=== PATIENT | female | born 1960 | race Caucasian/White ===

== ENCOUNTER → 2018-01-12 08:14 | Outpatient (CLI) | payer OTHER, SELFPAY ==
[2018-01-12 09:51] LABS: Alanine Aminotransferase 42 U/L (12-78); Albumin Level 3.8 gm/dL (3.4-5.0); Albumin/Globulin Ratio 1.3 (1.1-1.8); Alkaline Phosphatase 82 U/L (46-116); Anion Gap 11.2 mEq/L (5-15); Aspartate Amino Transferase 22 U/L (15-37); Bilirubin,Total 0.4 mg/dL (0.2-1.0); Blood Urea Nitrogen 14 mg/dL (7-18); Calcium 8.5 mg/dL (8.5-10.1); Carbon Dioxide 30 mmol/L (21.0-32.0); Chloride 106 mmol/L (98-107); Chol/HDL Ratio 3.8 (1-3.5); Cholesterol 203 mg/dL (140-200); Creatinine,Serum 0.77 mg/dL (0.55-1.02); Estimated Glomerular Filt Rate 78 ml/min (>60); GFR (African American) 94 ML/MIN (>60); Glucose 96 mg/dL (74-106); HDL Cholesterol 54 mg/dL (29-89); LDL Cholesterol 131 mg/dL (0-130); Potassium 4.2 mmoL/L (3.5-5.1); Sodium 143 mmol/L (136-145); Thyroid Stimulating Hormone 1.99 uIU/ml (0.358-3.740); Total Protein,Serum 6.8 gm/dL (6.4-8.2); Triglycerides 89 mg/dL (30-200); VLDL Cholesterol 18 mg/dL (0-40)
[2018-01-13 17:03] LABS: Hemoglobin A1C 5.7 % (0.0-7.0)
== END ==
PROVIDERS: Visit Provider Family Medicine
DX: I10 Essential (primary) hypertension (principal); Z68.41 Body mass index [BMI] 40.0-44.9, adult
CPT/HCPCS: 36415; 80053; 80061; 83036; 84443

== ENCOUNTER → 2018-11-25 11:09 | Outpatient (CLI) | payer OTHER, SELFPAY ==
--- NOTE | 2018-11-25 11:14 | XR_ITS ---
XR knee RT 4V HISTORY: ITS.REASON: RT KNEE PAIN ORDERING PHYSICIAN: Drew Campbell MD PATIENT AGE: 58 years COMPARISON: None FINDINGS: Weight bearing views are performed There are mild tricompartmental osteoarthritic changes. There is decrease in the joint space medially with osteophyte formation at the lateral compartment and patellofemoral joint. Osteophytes are also present in the intercondylar region of the distal femur and at the tibial spines. No fracture or dislocation. No lytic or blastic change. IMPRESSION: Mild tricompartmental osteoarthritis
== END ==
PROVIDERS: PCP Family Medicine; Visit Provider Family Medicine
DX: M25.561 Pain in right knee (principal)
CPT/HCPCS: 73564

== ENCOUNTER → 2019-08-10 07:21 | Outpatient (CLI) | payer OTHER, SELFPAY ==
[2019-08-10 08:53] LABS: Alanine Aminotransferase 25 U/L (12-78); Albumin Level 3.6 gm/dL (3.4-5.0); Albumin/Globulin Ratio 1.3 (1.1-1.8); Alkaline Phosphatase 80 U/L (46-116); Anion Gap 13.2 mEq/L (5-15); Aspartate Amino Transferase 12 U/L (15-37); Bilirubin,Total 0.5 mg/dL (0.2-1.0); Blood Urea Nitrogen 17 mg/dL (7-18); Calcium 8.5 mg/dL (8.5-10.1); Carbon Dioxide 26 mmol/L (21.0-32.0); Chloride 105 mmol/L (98-107); Chol/HDL Ratio 3.4 (1-3.5); Cholesterol 188 mg/dL (140-200); Creatinine,Serum 0.77 mg/dL (0.55-1.02); Estimated Glomerular Filt Rate 77 ml/min (>60); GFR (African American) 93 ML/MIN (>60); Globulin 2.8 gm/dl (1.3-3.2); Glucose 98 mg/dL (74-106); HDL Cholesterol 56 mg/dL (29-89); LDL Cholesterol 115 mg/dL (0-130); Potassium 4.2 mmoL/L (3.5-5.1); Sodium 140 mmol/L (136-145); Total Protein,Serum 6.4 gm/dL (6.4-8.2); Triglycerides 84 mg/dL (30-200); VLDL Cholesterol 17 mg/dL (0-40)
== END ==
PROVIDERS: PCP Family Medicine; Visit Provider Family Medicine
DX: I10 Essential (primary) hypertension (principal); E78.5 Hyperlipidemia, unspecified
CPT/HCPCS: 36415; 80053; 80061

== ENCOUNTER → 2019-08-31 15:08 | Outpatient (CLI) | payer OTHER, SELFPAY ==
--- NOTE | 2019-08-31 15:15 | XR_ITS ---
PROCEDURE: XR FOOT WT BEARING LT 3V CLINICAL INDICATION: foot pain COMPARISON: No exams were available for comparison FINDINGS: No fracture or dislocation. No lytic or blastic change. There is normal mineralization. Minimal osteoarthritic changes are present at the 1st metatarsal phalangeal junction, at the navicular cuneiform junction and at the tarsal metatarsal junction. There is a small calcaneal spur and small enthesophyte at the Achilles insertion. IMPRESSION: Degenerative change, no acute finding Dictated by: Nithin Ramires MD 08/31/2019 16:30 Electronically signed by Nithin Ramires MD in [place] 08/31/2019 16:30
--- NOTE | 2019-08-31 15:15 | XR_ITS ---
PROCEDURE: XR ANKLE WT BEARING RT MIN 3V CLINICAL INDICATION: foot pain Right ankle pain COMPARISON: XR FOOT WT BEARING RT 3V from 08/31/2019 FINDINGS: No fracture, dislocation, lytic change, or blastic change evident. No significant degenerative change IMPRESSION: No acute findings. Dictated by: Nithin Ramires MD 08/31/2019 16:31 Electronically signed by Nitihn Ramires MD in [place] 08/31/2019 16:31
--- NOTE | 2019-08-31 15:15 | XR_ITS ---
PROCEDURE: XR ANKLE WT BEARING LT MIN 3V CLINICAL INDICATION: foot pain Left dorsal foot and ankle pain COMPARISON: XR FOOT WT BEARING LT 3V from 08/31/2019 FINDINGS: No fracture, dislocation, lytic change, or blastic change evident. No significant degenerative change. There are minimal hypertrophic changes at the tip of the medial malleolar region. Talar dome is intact as is the ankle mortise IMPRESSION: Negative left ankle Dictated by: Nithin Ramires MD 08/31/2019 16:29 Electronically signed by Nithin Ramires MD in [place] 08/31/2019 16:29
--- NOTE | 2019-08-31 15:15 | XR_ITS ---
PROCEDURE: XR FOOT WT BEARING RT 3V CLINICAL INDICATION: foot pain COMPARISON: No exams were available for comparison FINDINGS: No fracture or dislocation. No lytic or blastic change. There is normal mineralization. Minimal osteoarthritic changes are present at the 1st MTP joint, navicular cuneiform joint and metatarsal tarsal junction. Other findings:None. IMPRESSION: Mild degenerative changes otherwise negative Dictated by: Nithin Ramires MD 08/31/2019 16:32 Electronically signed by Nithin Ramires MD in [place] 08/31/2019 16:32
== END ==
PROVIDERS: PCP Family Medicine; Visit Provider Podiatrist
DX: M79.672 Pain in left foot (principal); M79.671 Pain in right foot; M25.872 Other specified joint disorders, left ankle and foot
CPT/HCPCS: 73610; 73630

== ENCOUNTER → 2021-11-05 13:42 | Outpatient (CLI) | payer OTHER, SELFPAY | PROVIDERS: PCP Family Medicine; Visit Provider Nurse Practitioner | DX: U07.1 COVID-19 (principal) | CPT/HCPCS: C9803; U0003; U0005 ==

== ENCOUNTER → 2022-11-11 09:24 | Outpatient (CLI) | payer OTHER, SELFPAY ==
[2022-11-11 10:45] LABS: Basophils # 0.1 K/mm3 (0-0.2); Basophils % 1.2 % (0.1-2.0); Eosinophils # 0.3 K/mm3 (0.0-0.4); Eosinophils % 4.4 % (0.1-12.0); Hematocrit 45.4 % (37.0-47.0); Hemoglobin 14.2 g/dL (12.2-16.2); Lymphocytes # 2.3 K/mm3 (0.7-4.5); Lymphocytes % 30.9 % (10-50); Mean Corpuscular HGB Conc 31.4 g/dL (31.8-35.4); Mean Corpuscular Hemoglobin 28.8 pg (27.0-31.2); Mean Corpuscular Volume 91.9 fl (81-99); Monocytes # 0.4 K/mm3 (0.1-1.0); Monocytes % 5.9 % (1.7-9.3); Neutrophils # 4.2 K/mm3 (1.8-7.8); Neutrophils % 57.6 % (37.0-80.0); Platelet Count 325 K/mm3 (142-424); Red Blood Count 4.94 M/mm3 (4.20-5.40); Red Cell Distribution Width 13.7 % (11.5-17.5); White Blood Count 7.3 K/mm3 (4.8-10.8)
[2022-11-11 10:57] LABS: Chloride 106 mmol/L (98-107); Potassium 4.1 mmoL/L (3.5-5.1); Sodium 140 mmol/L (136-145)
[2022-11-11 10:59] LABS: Alanine Aminotransferase 27 U/L (12-78); Aspartate Amino Transferase 28 U/L (14-36); Blood Urea Nitrogen 23 mg/dl (7-17); Estimated Glomerular Filt Rate 85 ml/min (>60); GFR (African American) 103 ML/MIN (>60)
[2022-11-11 11:00] LABS: Albumin Level 3.8 g/dl (3.5-5.0); Albumin/Globulin Ratio 1.7 (1.1-1.8); Alkaline Phosphatase 75 U/L (38-126); Anion Gap 10.1 mEq/L (5-15); Bilirubin,Total 0.5 mg/dl (0.2-1.3); Calcium 8.5 mg/dl (8.4-10.2); Carbon Dioxide 28 mmol/L (22.0-30.0); Cholesterol 196 mg/dl (140-200); Globulin 2.2 g/dL (1.3-3.2); Glucose 89 mg/dl (74-100); Triglycerides 93 mg/dl (30-150); VLDL Cholesterol 19 mg/dL (0-40)
[2022-11-11 11:01] LABS: HDL Cholesterol 49 mg/dl (40-60)
[2022-11-11 11:11] LABS: Direct LDL Cholesterol 90.24 mg/dL (100-129)
[2022-11-11 11:31] LABS: Thyroid Stimulating Hormone 1.13 uIU/mL (0.465-4.68)
== END ==
PROVIDERS: PCP Family Medicine; Visit Provider Family Medicine
DX: I10 Essential (primary) hypertension (principal); R53.83 Other fatigue; Z13.220 Encounter for screening for lipoid disorders; Z79.899 Other long term (current) drug therapy
CPT/HCPCS: 36415; 80053; 80061; 84443; 85025

== ENCOUNTER 2023-08-31 09:00 | Outpatient (RCR) | payer OTHER, SELFPAY | END 2023-08-31 09:05 | disposition home or self-care (01) | LOC: PT 09:00 | PROVIDERS: PCP Family Medicine; Visit Provider Physician Assistant Surgical | DX: M25.561 Pain in right knee (principal); Z96.651 Presence of right artificial knee joint | CPT/HCPCS: 97010; 97014; 97016; 97110; 97140; 97163; 97164; 97530; G0283 ==

== ENCOUNTER 2024-04-18 07:41 | Outpatient (CLI) | payer OTHER, SELFPAY ==
[2024-04-18 07:54] LABS: Basophils # 0.1 K/mm3 (0-0.2); Eosinophils # 0.3 K/mm3 (0.0-0.4); Hematocrit 43.3 % (37.0-47.0); Lymphocytes # 2.3 K/mm3 (0.7-4.5); Mean Corpuscular HGB Conc 32.2 g/dL (31.8-35.4); Mean Corpuscular Hemoglobin 29.5 pg (27.0-31.2); Mean Corpuscular Volume 91.8 fl (81-99); Mean Platelet Volume 7.6 fl (7.4-10.4); Monocytes # 0.4 K/mm3 (0.1-1.0); Monocytes % 5.5 % (1.7-9.3); Neutrophils # 4.2 K/mm3 (1.8-7.8); Neutrophils % 57.5 % (37.0-80.0); Platelet Count 284 K/mm3 (142-424); Red Blood Count 4.72 M/mm3 (4.20-5.40); Red Cell Distribution Width 13.7 % (11.5-17.5); White Blood Count 7.2 K/mm3 (4.8-10.8)
[2024-04-18 08:51] LABS: Chloride 106 mmol/L (98-107)
[2024-04-18 08:52] LABS: Sodium 137 mmol/L (136-145)
[2024-04-18 08:54] LABS: Alanine Aminotransferase 23 U/L (12-78); Albumin Level 3.7 g/dl (3.5-5.0); Albumin/Globulin Ratio 1.5 (1.1-1.8); Alkaline Phosphatase 69 U/L (38-126); Aspartate Amino Transferase 26 U/L (14-36); Bilirubin,Total 0.6 mg/dl (0.2-1.3); Blood Urea Nitrogen 16 mg/dl (7-17); Carbon Dioxide 27 mmol/L (22.0-30.0); Estimated Glomerular Filt Rate 85 ml/min (>60); GFR (African American) 103 ML/MIN (>60); Globulin 2.4 g/dL (1.3-3.2); Total Protein,Serum 6.1 g/dl (6.3-8.2)
[2024-04-18 08:55] LABS: Calcium 9.2 mg/dl (8.4-10.2); Chol/HDL Ratio 3.8 (1-3.5); Cholesterol 203 mg/dl (140-200); Glucose 92 mg/dl (74-100); HDL Cholesterol 53 mg/dl (40-60); Triglycerides 79 mg/dl (30-150); VLDL Cholesterol 16 mg/dL (0-40)
[2024-04-18 09:06] LABS: Direct LDL Cholesterol 106.92 mg/dL (100-129)
[2024-04-18 10:16] LABS: Vitamin B12 705 pg/mL (239-931)
== END 2024-04-18 23:59 | disposition home or self-care (01) ==
LOC: LAB 07:42
PROVIDERS: PCP Internal Medicine; Visit Provider Internal Medicine
DX: R53.83 Other fatigue (principal); I10 Essential (primary) hypertension; E78.5 Hyperlipidemia, unspecified; E66.01 Morbid (severe) obesity due to excess calories; Z68.41 Body mass index [BMI] 40.0-44.9, adult
CPT/HCPCS: 36415; 80050; 80053; 80061; 82607; 84443; 85025

== ENCOUNTER 2024-09-27 07:42 | Emergency (ER) | payer OTHER, SELFPAY ==
[2024-09-27] VITALS (11 sets, daily range): BP systolic 126–147; BP diastolic 72–91; PULSE 50–80; RESP 13–16; TEMP 36.4–36.7; O2SAT 93–100; BMI 31.3
--- NOTE | 2024-09-27 07:56 | ECG_ITS ---
APPROVED REPORT Exam: Resting ECG HR:62 bpm ECG Measurements Heart Rate 62 AXES MS 165 P -13 QRSd 98 QRS 36 QT 370 T -65 QTc 376 Conclusion POSSIBLE ANTERIOR MYOCARDIAL INFARCTION , PROBABLY OLD [30 ms Q WAVE IN V3/V4, OR R < 0.2 mV IN V4] MODERATE T-WAVE ABNORMALITY, CONSIDER INFERIOR ISCHEMIA [-0.1+ mV T-WAVE IN II/aVF] ABNORMAL ECG Sinus rhythm versus atrial flutter with 4-1 block, no STEMI Electronically signed by : JUANITO GILL, 09/30/2024 17:31:00
--- NOTE | 2024-09-27 08:08 | CT_ITS ---
FINAL REPORT TECHNIQUE: Thin section axial images are obtained through the brain after intravenous contrast injection. Multiplanar reconstructions were obtained from the axial data. Exam was performed using dose reduction technique per the ALARA principal. CLINICAL HISTORY: fall, posterior trauma, new nystagmus and vertigo COMPARISON: None FINDINGS: Exam is somewhat limited secondary to poor bolus. The intracerebral portions of the carotid arteries are patent. The anterior and middle cerebral arteries are patent. The basilar artery is patent. The left vertebral artery is dominant. The posterior cerebral arteries arise from the basilar artery. [place] is intact. There is no significant stenosis, aneurysm, or AVM. IMPRESSION: Unremarkable but somewhat limited exam. Reviewed, Interpreted and Dictated by Nandini Gaffney MD Transcribed by Kenzie Mosquera Authenticated and [facility]
--- NOTE | 2024-09-27 08:08 | CT_ITS ---
FINAL REPORT TECHNIQUE: Thin section axial images were obtained from skull base to vertex without contrast. Coronal and sagittal reconstruction images were obtained from the axial data. Exam was performed using dose reduction technique. CLINICAL HISTORY: fall, posterior trauma, new nystagmus and vertigo COMPARISON: None FINDINGS: There is no mass effect or midline shift. There is no hydrocephalus. There is no intracranial hemorrhage. The posterior fossa is without acute abnormality. The basilar cisterns are preserved. The soft tissues are without acute abnormality. No acute osseous abnormality is identified. IMPRESSION: No acute intracranial abnormality. Reviewed, Interpreted and Dictated by Nandini Gaffney MD Transcribed by Kenzie Mosquera Authenticated and [facility]
--- NOTE | 2024-09-27 08:08 | CT_ITS ---
FINAL REPORT TECHNIQUE: Thin section axial images were obtained through the neck after contrast administration per CT angiogram protocol. Multiplanar reconstruction images were obtained from the axial data. Exam was performed using dose reduction technique. CLINICAL HISTORY: fall, posterior trauma, new nystagmus and vertigo COMPARISON: None FINDINGS: CTA NECK: Exam is somewhat limited secondary to poor bolus. Aortic arch: There is a normal three-vessel configuration to the aortic arch. There is no significant stenosis of the great vessels at their origins. Right carotid artery: The right common carotid artery is patent without stenosis. The cervical portions of the right internal carotid artery are patent without stenosis. Left carotid artery: The left common carotid artery is patent without stenosis. The cervical portions of the left internal carotid artery are patent without stenosis. Vertebral arteries: The vertebral arteries are patent. Other soft tissues: Unremarkable. IMPRESSION: Unremarkable but somewhat limited exam. Reviewed, Interpreted and Dictated by Nandini Gaffney MD Transcribed by Kenzie Mosquera Authenticated and [facility]
--- NOTE | 2024-09-27 08:09 | XR_ITS ---
FINAL REPORT CLINICAL HISTORY: new nystagmus and vertigo FINDINGS: A single view of the chest was obtained. There is no prior exam for comparison. The cardiac and mediastinal silhouettes are within normal limits. The lungs are clear. There is no effusion or pneumothorax. IMPRESSION: No radiographic evidence of acute cardiac or pulmonary disease on this single view of the chest. Reviewed, Interpreted and Dictated by Nandini Gaffney MD Transcribed by Starr Mccoy Authenticated and [facility]
--- NOTE | 2024-09-27 08:09 | CT_ITS ---
FINAL REPORT TECHNIQUE: Thin section axial images were obtained through the cervical spine without contrast. Multiplanar reconstruction images were obtained from the axial data. Exam was performed using dose reduction techniques. CLINICAL HISTORY: fall, posterior trauma, new nystagmus and vertigo COMPARISON: None FINDINGS: There is no acute fracture or acute malalignment of the cervical spine. There is no evidence of unilateral or bilateral facet lock. Vertebral body height is preserved. Multilevel degenerative disc disease is most pronounced in the mid cervical spine. No acute paraspinal abnormality is identified. IMPRESSION: No fracture. Degenerative disc disease Reviewed, Interpreted and Dictated by Nandini Gaffney MD Transcribed by Kenzie Mosquera Authenticated and [facility]
[2024-09-27] MEDS: ONDANSETRON 4MG/2ML VIAL 4 MG IV (08:18)
[2024-09-27] MEDS: MECLIZINE 25MG TABLET 50 MG PO (08:18)
[2024-09-27] MEDS: DEXAMETHASONE 4MG/ML 1ML VIAL 10 MG IV (08:18)
[2024-09-27 08:19] LABS: Basophils # 0.1 K/mm3 (0-0.2); Basophils % 0.6 % (0.1-2.0); Eosinophils # 0.1 K/mm3 (0.0-0.4); Eosinophils % 1.3 % (0.1-12.0); Hematocrit 41.7 % (37.0-47.0); Hemoglobin 13.9 g/dL (12.2-16.2); Lymphocytes % 21.5 % (10-50); Mean Corpuscular HGB Conc 33.4 g/dL (31.8-35.4); Mean Corpuscular Hemoglobin 30.1 pg (27.0-31.2); Mean Corpuscular Volume 90.2 fl (81-99); Mean Platelet Volume 7.4 fl (7.4-10.4); Monocytes # 0.5 K/mm3 (0.1-1.0); Monocytes % 5.8 % (1.7-9.3); Neutrophils # 6.5 K/mm3 (1.8-7.8); Neutrophils % 70.7 % (37.0-80.0); Platelet Count 286 K/mm3 (142-424); Red Blood Count 4.62 M/mm3 (4.20-5.40); Red Cell Distribution Width 13.5 % (11.5-17.5); White Blood Count 9.2 K/mm3 (4.8-10.8)
[2024-09-27 08:25] LABS: INR 0.99 (0.9-1.1); Prothrombin Time 11.1 seconds (10.1-12.5)
[2024-09-27 08:31] LABS: Alanine Aminotransferase 30 U/L (12-78); Albumin/Globulin Ratio 1.7 (1.1-1.8); Alkaline Phosphatase 68 U/L (38-126); Anion Gap 11.3 mEq/L (5-15); Aspartate Amino Transferase 33 U/L (14-36); Bilirubin,Total 0.6 mg/dl (0.2-1.3); Blood Urea Nitrogen 14 mg/dl (7-17); Calcium 8.8 mg/dl (8.4-10.2); Carbon Dioxide 24 mmol/L (22.0-30.0); Chloride 108 mmol/L (98-107); Creatinine Clearance Estimated 82 mL/min (50-200); Estimated Glomerular Filt Rate 85 ml/min (>60); GFR (African American) 102 ML/MIN (>60); Globulin 2.3 g/dL (1.3-3.2); Glucose 166 mg/dl (74-100); Potassium 3.3 mmoL/L (3.5-5.1); Sodium 140 mmol/L (136-145); Total Protein,Serum 6.3 g/dl (6.3-8.2)
[2024-09-27 08:37] LABS: Activated Partial Thrombo Time 23.8 seconds (22.8-30.6)
[2024-09-27 08:41] LABS: NT Pro Brain Natriuretic Pep. 43.4 pg/mL (0-125)
[2024-09-27 08:48] LABS: T4 (Thyroxine) 11.4 ug/dl (5.53-11.0); Troponin I < 0.01 ng/ml (0.00-0.034)
[2024-09-27] MEDS: 0.9 % SODIUM CHLORIDE 50 ML VIAL 40 ML IV (08:51)
[2024-09-27] MEDS: SODIUM CHLORIDE 0.9% 10ML SYR (RAD ONLY) 10 ML IV (08:52)
[2024-09-27] MEDS: IOPAMIDOL-370 (76%);100ML BOTTLE 80 ML IV (08:52)
--- NOTE | 2024-09-27 08:58 | PC.NURSE ---
pt back to room via wheelchair
[2024-09-27 09:01] LABS: Thyroid Stimulating Hormone 0.83 uIU/mL (0.465-4.68)
--- NOTE | 2024-09-27 09:20 | ED_ITS ---
Discharge Plan Disposition Chief Complaint: Nausea/Vomiting/Diarrhea Prescriptions Prescriptions: New meclizine [Medi-Meclizine] 25 mg tablet 25 mg PO QID PRN (Reason: dizziness) Qty: 30 0RF ondansetron 4 mg tablet,disintegrating 4 mg PO Q6H PRN (Reason: nausea and vomiting) Qty: 10 1RF prednisone 20 mg tablet 40 mg PO DAILY 5 Days Qty: 10 0RF No Action pantoprazole 40 mg tablet,delayed release (DR/EC) 40 mg PO DAILY Qty: 30 2RF diclofenac sodium [Voltaren Arthritis Pain] 1 % gel 2 g topical QID Qty: 100 2RF Rx Instructions: apply to knee, foot, and ankle benazepril-hydrochlorothiazide 20-12.5 mg tablet 1 tab PO DAILY Qty: 90 1RF Referrals Follow up/Referrals: John Quintero, PT [Physical Therapist] - See instructions Carloz Stauffer MD [Physician] - See instructions Joel Gerard MD [Primary Care Provider] - See instructions Activity Restrictions/Add. Instructions Additional Instructions/Restrictions: Follow-up with physical therapy for further exercises for vestibular rehab. If steroid does not help, no need to continue taking it if you are not noticing a difference after about 24 hours. Meclizine for as needed/symptomatic worsening and dizziness can be taken every 6 hours as needed. Zofran for nausea. Call your family doctor to establish care for this visit to the emergency department and schedule follow-up within 48 hours to ensure improvement. If you have any worsening of your condition or any other concerning signs or symptoms, return to the emergency department or your primary care doctor for further evaluation. Clinical Impressions Clinical Impression: Peripheral positional vertigo of right ear Instructions Patient Instructions: DI for Diarrhea and Traveler's Diarrhea -- Adult, DI for Diarrhea and Traveler's Diarrhea -- Child, DI for Nausea -- Adult, DI for Nausea -- Child Print Language Print Language: Vietnamese Discharge ED Provider: Felipe Campbell General Adult HPI General Chief complaint: Nausea/Vomiting/Diarrhea Stated complaint: vomiting, dizziness, confused, high BP Time Seen by Provider: 09/27/24 07:53 Mode of Arrival: Wheelchair Source of Information: Patient Limitations: No Limitations Description of Symptoms (Recalled from ER Triage Doc. by RN): pt presents to ED with c/o nausea vomitting that began this am appros 0530. History of Present Illness HPI narrative: Please note that above description of symptoms, in this electronic medical record under categorization of recalled from ER triage doctor by RN are reflective of an initial nursing assessment, however, is not reflective of my full history and physical exam that was personally taken and clarified. Consequentially, this preceding description of symptoms, which may include the patient's categorized chief complaint in the EMR, do not reflect my personal clinical impression, and the ultimate description of history of present illness and patient stated complaints should be deferred to this section of the note. Unless stated otherwise or congruent with this section of the note, additional signs, symptoms, or incongruence should be interpreted as inaccurate with my clinical impression. Related Data Previous Rx's ?Medication ?Instructions ?Recorded diclofenac sodium 1 % topical gel 2 g topical QID #100 grams 04/27/24 (Voltaren Arthritis Pain) pantoprazole 40 mg tablet,delayed 40 mg PO DAILY #30 tabs 04/27/24 release benazepril 20 1 tab PO DAILY #90 tabs 05/11/24 mg-hydrochlorothiazide 12.5 mg tablet meclizine 25 mg tablet 25 mg PO QID PRN dizziness #30 tabs 09/27/24 (Medi-Meclizine) ondansetron 4 mg disintegrating 4 mg PO Q6H PRN nausea and 09/27/24 tablet vomiting #10 tabs prednisone 20 mg tablet 40 mg (2 x 20 mg) PO DAILY 5 days 09/27/24 #10 tabs Allergies Allergy/AdvReac Type Severity Reaction Status Date / Time No Known Allergies Allergy Verified 04/01/20 15:30 [facility] Disclaimer: The information contained in this section may have been updated after the patient was seen, as this information can be updated by other users. Social History Smoking Status: Never smoker alcohol intake: current alcohol intake frequency: holidays/special occasions only substance use type: denies use current occupational status: employed household members: none housing: house Other Medical History Have you received the Pneumonia Vaccine: No ROS Obtained: Yes All systems reviewed & no additional complaints except as documented Physical Exam General General appearance: alert and obese Head Head exam: atraumatic and normocephalic Eye Eye exam: Present PERRL, EOMI and nystagmus (Unidirectional with fast phase to the right) Neck Neck exam: Present normal inspection, full ROM and trachea midline Respiratory Respiratory exam: Present normal lung sounds bilaterally; Absent respiratory distress, wheezes, stridor, accessory muscle use or prolonged expiratory phase Cardiovascular Cardiovascular exam: Present regular rate, normal rhythm, normal heart sounds and other (Pulses equal symmetric in upper and lower extremities) Abdominal Exam Abdominal exam: Present soft; Absent distention, tenderness or pulsatile mass Extremities Exam Extremities exam: Present normal inspection; Absent edema Neurological Exam Neurological exam: Present alert, oriented X3 and CN II-XII intact; Absent motor sensory deficit Skin Skin exam: Present warm and dry; Absent diaphoresis or erythema Medical Decision Making Medical Records Medical records reviewed: Yes I reviewed the patient's medical records. Screening: Per USPSTF and CDC recommendations, given the prevalence of disease in our region, it is our hospital?s policy to screen for HIV and viral Hepatitis for all patients aged 18 and over and those with ongoing risk factors. Sahil Inquiry Pt receiving controlled substance: No Sahil was queried for this patient: No Vital Signs: 09/27/24 07:43 09/27/24 07:51 09/27/24 08:25 Temperature 97.6 F Temperature Source Oral Pulse Rate 60 53 L Pulse Rate [Left Radial] 63 Respiratory Rate 13 Blood Pressure 147/74 H 146/79 H Blood Pressure [Right Arm] 147/74 H Blood Pressure Mean [Right Arm] 98 02 Sat by Pulse Oximetry 96 95 94 L Oxygen Delivery Method Room Air 09/27/24 08:26 09/27/24 08:30 09/27/24 09:01 Temperature Temperature Source Pulse Rate 55 L 56 L 61 Pulse Rate [Left Radial] Respiratory Rate 15 Blood Pressure 139/77 129/72 144/91 H Blood Pressure [Right Arm] Blood Pressure Mean [Right Arm] 02 Sat by Pulse Oximetry 93 L 94 L 98 Oxygen Delivery Method Room Air 09/27/24 09:15 09/27/24 09:30 Temperature Temperature Source Pulse Rate 56 L 50 L Pulse Rate [Left Radial] Respiratory Rate 14 13 Blood Pressure 128/84 126/78 Blood Pressure [Right Arm] Blood Pressure Mean [Right Arm] 02 Sat by Pulse Oximetry 98 98 Oxygen Delivery Method Room Air Room Air Lab Data Lab Results 09/27/24 07:53: WBC 9.2, RBC 4.62, Hgb 13.9, Hct 41.7, MCV 90.2, MCH 30.1, MCHC 33.4, RDW 13.5, Plt Count 286, MPV 7.4, Neut % (Auto) 70.7, Lymph % (Auto) 21.5, [place] % (Auto) 5.8, Eos % (Auto) 1.3, Baso % (Auto) 0.6, Neut # (Auto) 6.5, Lymph # (Auto) 2.0, [place] # (Auto) 0.5, Eos # (Auto) 0.1, Baso # (Auto) 0.1, PT 11.1, INR 0.99, APTT 23.8, Sodium 140, Potassium 3.3 L, Chloride 108 H, Carbon Dioxide 24, Anion Gap 11.3, BUN 14, Creatinine 0.70, Estimated Creat Clear 82, Estimated GFR 85, Est GFR ( Amer) 102, Glucose 166 H, Calcium 8.8, Total Bilirubin 0.6, AST 33, ALT 30, Alkaline Phosphatase 68, Troponin I < 0.01, NT-Pro-B Natriuret Pep 43.4, Total Protein 6.3, Albumin 4.0, Globulin 2.3, Albumin/Globulin Ratio 1.7, TSH 0.83, Thyroxine (T4) 11.4 H 09/27/24 07:53 09/27/24 07:53 Orders (Tests/Meds): ED MEDICATIONS Discontinued Medications Generic Name Dose Route Start Last Admin Trade Name Jorgeq PRN Reason Stop Dose Admin Dexamethasone Sodium Phosphate 10 mg 09/27/24 08:08 09/27/24 08:18 Dexamethasone 4mg/Ml 1ml Vial IV 09/27/24 08:09 10 mg ONCE ONE Administration Diazepam 2.5 mg 09/27/24 10:03 09/27/24 10:23 Diazepam 10mg/2ml Syringe IV 09/27/24 10:04 2.5 mg ONCE ONE Administration Diazepam 2.5 mg 09/27/24 12:14 09/27/24 12:17 Diazepam 10mg/2ml Syringe IV 09/27/24 12:15 2.5 mg ONCE ONE Administration Iopamidol 80 ml 09/27/24 08:50 09/27/24 08:52 Iopamidol-370 (76%);100ml Bottle IV 09/27/24 08:51 80 ml ONCE ONE Administration Meclizine HCl 50 mg 09/27/24 08:08 09/27/24 08:18 Meclizine 25mg Tablet PO 09/27/24 08:09 50 mg ONCE ONE Administration Ondansetron HCl 4 mg 09/27/24 08:08 09/27/24 08:18 Ondansetron 4mg/2ml Vial IV 09/27/24 08:09 4 mg ONCE ONE Administration Sodium Chloride 40 ml 09/27/24 08:50 09/27/24 08:51 0.9 % Sodium Chloride 50 Ml Vial IV 09/27/24 08:51 40 ml ONCE ONE Administration Sodium Chloride 10 ml 09/27/24 08:50 09/27/24 08:52 Sodium Chloride 0.9% 10ml Syr (Rad Only) IV 09/27/24 08:51 10 ml ONCE ONE Administration ORDERS Category Date Time Status CT angio head Stat Cat Scan 09/27/24 08:[address] angio neck Stat Cat Scan 09/27/24 08:[address] cervical spine wo con Stat Cat Scan 09/27/24 08:[address] head/brain wo con Stat Cat Scan 09/27/24 08:08 Completed XR chest portable Stat Exams 09/27/24 08:09 Completed Complete Blood Count Auto Diff Stat Lab 09/27/24 07:53 Completed Comprehensive Metabolic Panel Stat Lab 09/27/24 07:53 Completed HIV (1&2) Antibody Rapid Stat Lab 09/27/24 07:53 Received Hep C Ab with Reflex to RNA Stat Lab 09/27/24 07:53 Received NT Pro Brain Natriuretic Pep. Stat Lab 09/27/24 07:53 Completed PT INR [Prothrombin Time INR] Stat Lab 09/27/24 07:53 Completed PTT [Activated Partial Thrombo Time] Stat Lab 09/27/24 07:53 Completed T4 (Thyroxine) Stat Lab 09/27/24 07:53 Completed TSH [Thyroid Stimulating Hormone] Stat Lab 09/27/24 07:53 Completed Troponin I Stat Lab 09/27/24 07:53 Completed Medical Decision Narrative: 64-year-old female history of hypertension, hyperlipidemia, obesity presenting with dizziness. Patient states that she rolled over in bed just prior to arrival, felt dizzy at that time. It has not gone away. Having difficulty walking, nausea and vomiting. Better when she is laying still, worse when she is up moving around. Family states that she was having a more or less staggering gait, but did not fall to 1 side or the other. No unilateral weakness or any other neurologic deficits. No chest pain, shortness of breath, fevers, chills, blurry vision, double vision, speaking difficulties, or any other symptoms. Patient does state that 2 days prior to this, she was outside, fell off of a stool while sitting, fell back, hit her occiput on concrete and did not lose consciousness. Has not had any symptoms since that time. This is patient's first episode of dizziness. History was obtained via conversation with patient and daughter. On arrival, patient hemodynamically stable, alert, oriented x4, appropriate, GCS 15, moving all extremities spontaneously, pupils equal and reactive to light. Full physical exam performed and significant for well-appearing female who is in no acute distress, but laying still in bed only being on eyes. Neurologically intact including cranial nerve, cerebellar, motor and sensory exam with the exception of unidirectional fast beating nystagmus to the right. Cardiopulmonary exam within normal limits. Differential includes BPPV, dissection, CVA, among others. Patient placed on continuous cardiac monitoring and continuous pulse ox with initial blood pressure 147/74, heart rate 63, saturation 96 on room air. Independent interpretation of EKG shows sinus rhythm 62 beats a minute with no acute ischemic change. [place] 165, QRS 98, QTc 376. Normal axis. Patient was given Decadron, meclizine, Zofran for symptomatic management and correction of underlying abnormalities. Workup independently interpreted and significant for non-actionable CBC or chemistry, negative troponin and BNP. Thyroid studies normal. Emmanuelle maneuver attempted x 2, unable to fix patient's symptoms. Valium trialed, this was unsuccessful. On independent interpretation of imaging, no acute intracranial bleed, no vascular unreality of the head or neck. No cervical spine abnormality. See radiology read for full review of final results. Because patient having persistent symptoms despite meds with negative CT, MRI was ordered. On independent interpretation, this was also negative. On reevaluation, patient still dizzy worse with motion. Given patient presentation, workup, history, this most likely represents benign positional vertigo. Prolonged discussion had with patient and daughter regarding treatment, recommended outpatient otolaryngology as well as physical therapy for vestibular rehab. Both voiced their understanding. Trial of steroids sent out of abundance of caution after request of daughter. I do not feel this is an appropriate given severity of symptoms. Because patient at baseline without signs or symptoms of clinical decompensation, deemed appropriate for discharge. Results were relayed to patient who voiced understanding and were agreeable to outpatient management and follow up. I discussed my clinical impression with patient and answered all questions. At this time, the evidence for any other entities in the differential is insufficient to warrant any further testing or ED observation. This was explained as well. Advisory was given that persistent or worsening symptoms require further evaluation. I confirmed the understanding of this discussion. 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 Electronic stringed instrument assembler of the spoken language may permit errors. Although I have reviewed the note, some errors may still exist. Critical Care Critical Care Time Critical Care Time: No
[2024-09-27] MEDS: diazePAM 10MG/2ML SYRINGE 2.5 MG IV ×2 (10:23→12:17)
--- NOTE | 2024-09-27 12:06 | MR_ITS ---
FINAL REPORT TECHNIQUE: Multiplanar and multisequence imaging of the brain was obtained without contrast. CLINICAL HISTORY: nystagmus, negative CT dizziness FINDINGS: The gyri and sulci are within normal limits for age. There is no mass effect or midline shift. The ventricles are symmetric in size and configuration without hydrocephalus. There are no areas of abnormal signal intensity. The cerebellum and brainstem have a normal appearance. There is a partially empty sella. There are no areas of restricted diffusion on diffusion weighted images to suggest acute infarct. Soft tissues are without acute abnormality. IMPRESSION: No acute intracranial abnormality. Partially empty sella. Reviewed, Interpreted and Dictated by Nandini Gaffney MD Transcribed by Rosalia Douglas Authenticated and [facility]
--- NOTE | 2024-09-27 12:55 | PC.NURSE ---
pt back to room via wheelchair
[2024-09-27 16:14] LABS: HIV (1&2) Antibody Rapid NONREACTIVE (NONREACTIVE)
[2024-09-28 05:10] LABS: HCV Ab Non Reactive (Non Reactive)
[2024-09-28 12:19] LABS: Lyme Ab CIA Negative (Negative)
[2024-10-02 22:48] LABS: Lyme B. burgdorferi PCR Blood Negative (Negative)
== END 2024-09-27 13:57 | disposition home or self-care (01) ==
PROVIDERS: Emergency Provider Emergency Medicine; PCP Internal Medicine
DX: H81.391 Other peripheral vertigo, right ear (principal); R41.82 Altered mental status, unspecified; R11.2 Nausea with vomiting, unspecified; R26.81 Unsteadiness on feet; I10 Essential (primary) hypertension
CPT/HCPCS: 70450; 70496; 70498; 70551; 71045; 72125; 80050; 80053; 83880; 84436; 84443; 84484; 85025; 85610; 85730; 86618; 86803; 87389; 87476; 93005; 96374; 96375; 99285; J1100; J2405; J3360; Q9967

== ENCOUNTER 2024-11-02 08:25 | Outpatient (POV) | payer OTHER, SELFPAY | END 2024-11-02 23:59 | disposition home or self-care (01) | LOC: SC 08:25 | PROVIDERS: Visit Provider Specialist/Technologist | DX: Z00.00 Encounter for general adult medical examination without abnormal findings (principal) ==

== ENCOUNTER 2025-10-01 08:29 | Outpatient (CLI) | payer OTHER, SELFPAY ==
--- OUTSIDE RECORDS SUMMARY | 2025-10-01 08:46 | XMS_ITS | Patient Health Record ---
[facility] Organization [facility] Address [address] [place] [id number] Care Team Providers Care Legal Process Specialist Name Role Phone Deondre Santiago Primary Care Provider [phone] Dre Campbell Unavailable [phone] Allergies No Known Allergies Reason For Referral No Information Medications Medication SIG (Take, Route, Frequency, Duration) Notes Start Date End Date Status Cefuroxime Axetil 500 MG 1 tablet Orally every 12 hrs 12/07/2023 Active Etodolac 400 MG 1 tab(s) orally 2 ti mes a day Not-Taking Doxycycline Hyclate 100 MG 1 cap(s) orally 2 times a day; Duration: 10 day(s) 10/02/2021 Not-Taking Nabumetone 750 MG 1 tab(s) orally Two times a day 03/03/2022 Not-Taking Benazepril-hydroCHLOROthi azide 20-12.5 MG 1 tab(s) orally once a day Active Medrol 4 MG as directed Orally 12/23/2023 Active Benzonatate 200 MG 1 capsule Orally thr ee times a day as needed 12/23/2023 Active Immunizations Vaccine Route Administration Date Status Comme nts xFluzone Intradermal (18-64yrs)-trivalent ID Intradermal 08/07/2013 Administered Typhoid vaccine Unknown 09/29/2018 Administered Tetanus Tdap-Adacel (over 7yrs) IM Intramuscular 11/02/2018 Administered Hepatitis A (adult) Unknown 09/29/2018 Administered Hepatitis A (adult) Unknown 12/02/2018 Administered Hepatitis A (adult) IM Intramuscular 07/23/2020 Administer ed Fluzone Quad (6months&older) IM Intramuscular 07/23/2020 Administered DT, 7 YEARS OR OLDER IM Intramuscular 07/24/2005 Administe red Problems Problem Type SNOMED Code ICD Code Onset Dates Problem Status W/U Status Risk Notes Problem Essential hypertension (05499448) Essential hypertension (I10) Active confirmed Problem Primary generalised osteoarthritis (587526784) Primary generalized (osteo)arthritis (M15.0) Active confirmed Problem Osteoarthritis of knee (710463548) Primary osteoarthritis of both knees (M17.0) Active confirmed Problem Osteoarthritis of knee (275800320) Primary osteoarthritis of right knee (M17.11) Active confirmed Problem Body mass index 40+ - morbidly obese (159284834) BMI 40.0-44.9, adult (Z68.41) Active confirmed Problem Skin sensation disturbance (98957871) Paresthesias in right hand (R20.2) Active confirmed Plan Of Treatment No Information Insurance Providers Payer Name Payer Address Payer Phone Subscriber Number Group Number Insured Name Patient Relationship to Insured Coverage Start Date Coverage End Date [facility] [address] [place] [address] [id number] ARMANI YUN Self - patient is the insured Medications Administered Medication Instructions Date of Administration Dosage Notes Dexamethasone 05/20/2007 1.0 mL Dexamethasone 01/18/2009 1 mL Dexamethasone 06/25/2010 1.0 mL Dexamethasone 02/05/2014 1 mL Dexamethasone 09/21/2016 1 mL Medical (General) History Medical History History ICD Code HBP Surgical History Surgery Date(Month/Year) scope on the right knee-[facility] 04/2019
--- OUTSIDE RECORDS SUMMARY | 2025-10-01 08:46 | XMS_ITS | Clinical Summary ---
Author Organization [facility] Yahir JL Address [address] [place] [address] Phone Care Team Providers Care Whistle Punk Name Role Phone Unavailable Primary Care Provider Unavailabl e Allergies No known active allergies Medications medroxyPROGEST ERone (DEPO-PROVERA) 150 mg/mL IM Suspension INJECT 150MG INTRAMUSCULARLY ONCE AT DOCTOR OFFICE 1 mL 0 10/22/20 14 Active Additional Information Patient not taking.Reason: Pt electing to not take the medication, Reported on 02/17/2017 lisinopril (PRINIVIL;ZEST RIL) 20 mg Oral Tablet Take 20 mg by mouth daily. Active Active Problems Problem Noted Date Diagnosed Date Sensorineural hearing loss of both ears 11/25/19 16 DUB (dysfunctional uterine bleeding) 10/30/2014 Menopausal symptoms 10/19/2013 Surgical History Surgery Date Site/Laterality Comments SECTION TONSILLECTOMY Medical History Medical History Date Comments Migraine Heartburn Hypertension Family History Medical History Relation Name Comments Hearing Loss Father Stroke Father Thyroid Disease Father Heart Disease Mother Heart Failure Mother Relation Name Status Comments Father Alive Mother Alive Social History Tobacco Use Types Packs/Day Years Used Date Smoking Tobacco: Never Smokeless Tobacco: Never Alcohol Use Standard Drinks/Week Comments Yes 0 (1 standard drink = 0.6 oz pur e alcohol) Sexually Active Control Partners Comments Yes Male Comments No Sex and Gender Information Value Date Recorded Sex Assigned at Not on file Legal Sex Female 7:53 PM EDT Gender Identity Not on file Sexual Orientation Not on file Obstetrics History Para Term AB IAB SAB Ectopic Multiple Livin g Live Births 1 1 Date Outcome GA Total Labor Labor/2nd/3rd Weight Sex Type Anes PTL Cathie A1 A5 Name Clin Para CS-Clas sical Last Filed Vital Signs Vital Sign Reading Time Taken Comments Blood Pressure 144/83 11/25/2015 1:38 PM EST Pulse - - Temperature - - Respiratory Rate - - Oxygen Saturation - - Inhaled Oxygen Concentration - - Weight 110.2 kg (243 lb) 02/17/2017 10:26 AM EDT Height 160 cm (5' 3 ) 02/17/2017 10:26 AM EDT Body Mass Index 43.05 02/17/2017 10:26 AM EDT Plan of Treatment Health Maintenance Due Date Last Done Comments Annual Wellness Exam 1964 Hepatitis C Screening 1979 DTaP/TDaP/Td (1 - Tdap) 1980 HPV/Pap Cotest 1991 Cologuard 2006 Colon Cancer Screening 2006 Colonoscopy 2006 FIT 2006 Sigmoidoscopy 2006 Virtual Colonography 2006 Pneumococcal Vaccine 50+ (1 of 1 - PCV) 2011 Zoster (1 of 2) 2011 Breast Cancer Screening 10/30/2016 10/30/2014 Cervical Cancer Screening 10/30/2017 Pap Smear 10/30/2017 10/30/2014, 10/01 (Not Entered), 10/19/2013, Additional history exists COVID-19 Vaccine ( season) 2025 Influenza Vaccine (#1) 2025 Hepatitis B Vaccine Aged Out No longe r eligible based on patient's age to complete this topic Meningococcal B Vaccine Aged Out No l onger eligible based on patient's age to complete this topic Procedures Procedure Name Priority Date/Time Associated Diagnosis Comments GLOBAL TRANSPORTATION MANAGER CYTOLOGY REPORT Routine 10/30/2014 5 :15 AM EST from Last 3 Months or Most Recently Relevant to Health Maintenance Results * GLOBAL TRANSPORTATION MANAGER CYTOLOGY REPORT (10/30/2014 5:15 AM EST) [facility] Cytology Report PATIENT NAME:ARMANI YUN [facility] Cytology Report Accession Number Collected Date/Time Received Date/Time [id number] 10/30/14 05:15 EST 10/31/14 05:27 EST GY Specimen Source Specimen Vag/Cerv/Endocx?: Cerv/Endocerv Statement of Adequacy Satisfactory for Evaluation. Transformation Zone Present. Diagnosis NEGATIVE FOR INTRAEPITHELIAL LESION OR MALIGNANCY. Comment The Pap Smear is a screening test that aids in the detection of cervical cancer and cancer precursors. Both false positive and false negative results can occur. The test should be used at regular intervals, and positive results should be confirmed before definitive therapy. Processed using the Gigle NetworksPrep Ingredient Specialist automated cytology screening device ([facility]). It Support Technician: FRANCHESCA 11/06/2014 Completed by: HILARY Tejada (Electronically signed by) 11/06/2014 [facility] Laboratory [facility] 10/30/2014 5:15 AM EST us aLtoya Dodson MD PATHOLOGY ORDERABLES Annette al Result [facility] [address] [place] [address] from Last 3 Months or Most Recently Relevant to Health Maintenance Insurance [facility] [employer] Member Subscriber Plan / Payer (Ef fective 2013-Present) Name:Armani Yun Relation to Subscriber:Self Name:Erik Armani Moss Payer ID:[id number] (NAIC) Type:Not on file Address: [address] [place] [id number] [facility] [employer]
--- OUTSIDE RECORDS SUMMARY | 2025-10-01 08:46 | XMS_ITS | Clinical Summary ---
[facility] Address [address] [place] [address] Care Team Providers Care Chef German Name Role Phone Drew Campbell MD Primary Care Provider Allergies No known active allergies Medications benazepril-hydro chlorthiazide (LOTENSIN HCT) 20-12.5 MG per tablet Take 1 tablet by mouth Daily. 11/13/2022 Active Loratadine (CLARITIN PO) Take 1 tablet by mouth Daily As Needed. Active pantoprazole (PROTONIX) 40 MG EC tablet Take 1 tablet by mouth Daily. 04/27/2024 Active Active Problems Problem Noted Date Diagnosed Date HTN (hypertension) 05/11/2023 GERD (gastroesophageal reflux disease) 3 S/P total knee arthroplasty, right 05/11/2023 Primary osteoarthritis of right knee 01/21/2023 Family History Medical History Relation Name Comments Diabetes Maternal Grandmother Sarahi Foster Relation Name Status Comments Maternal Grandmother Sarahi Foster Social History Tobacco Use Types Packs/Day Years Used Date Smoking Tobacco: Never Passive Smoke Exposure: Never Smokeless Tobacco: Never Alcohol Use Standard Drinks/Week Comments Yes 2 (1 standard drink = 0.6 oz pur e alcohol) Abuse Screen Answer Date Recorded Unsafe at Home or Work/School Not on file Feels Threatened by Someone? Not on file 07/2024 Does Anyone Keep You from Co ntacting Others or Doint Things Outside the Home? Not on file 05/09/2024 Physical Sign of Abuse Present Not on file 0 05/09/2024 Housing Stability Answer Date Recorded Current Living Arrangements Not on file 05/01 Potentially Unsafe Housing Conditions Not on rafael e 05/14/2024 Family and Community Support Answer Ruben e Recorded Help with Day-to-Day Activities Not on file 08/12/2023 Lonely or Isolated Not on file 08/12/2023 Employment Answer Date Recorded Do you want help finding or keeping work or a leroy b? Not on file 08/12/2023 Disabilities Answer Date Recorded Concentrating, Remembering, or Making Decisions Difficulty Not on file 05/14/2024 Doing Errands Independently Difficulty Not on fi le 05/14/2024 Education Answer Date Recorded Help with school or training? Not on file Preferred Language Not on file 05/09/2024 Comments No Sex and Gender Information Value Date Recorded Sex Assigned at Not on file Legal Sex Female 10:33 AM EST Gender Identity Not on file Sexual Orientation Not on file Last Filed Vital Signs Vital Sign Reading Time Taken Comments Blood Pressure 130/90 06/21/2024 8:34 AM EDT Pulse 65 05/11/2023 3:00 PM EDT Temperature 36.4 C (97.6 F) 05/11/2023 2:00 PM EDT Respiratory Rate 16 05/11/2023 2:30 PM EDT Oxygen Saturation 91% 05/11/2023 3:00 PM EDT Inhaled Oxygen Concentration - - Weight 102 kg (224 lb) 06/21/2024 8:34 AM EDT Height 157.5 cm (5' 2.01 ) 06/21/2024 8:34 AM ED T Body Mass Index 40.96 06/21/2024 8:34 AM EDT Plan of Treatment Health Maintenance Due Date Last Done Comments Annual Gynecologic Pelvic and Breast Exam 1961 MAMMOGRAM 2001 COLON CANCER SCREENING 5 YEAR SIGMOIDOSCOPY [address] COLONOGRAPHY 2006 FECAL OCCULT BLOOD TEST 2006 FIT Testing (1 year) 2006 Pneumococcal Vaccine 50+ (1 of 1 - PCV) 2011 ZOSTER VACCINE (1 of 2) 2011 ANNUAL PHYSICAL 12/18/2022 HEPATITIS C SCREENING 12/18/2022 COLOGUARD 2024 2021 COLORECTAL CANCER SCREENING 2024 INFLUENZA VACCINE 06/01/2025 07/23/2020 TDAP/TD VACCINES (2 - Td or Tdap) 11/02/2028 019 Medical Devices Implanted Type Area Grease Refiner Operator Device Identifier Shelf Expiration Date Model / Serial / Lot Dev Contrl Tiss Stratafix Symm Pds Plus Matilda Ct-1 45cm - [id number] Implanted:Qty : 1 on 05/11/2023 by Malcolm Mcdowell MD at [facility] Implant Right: Knee [employer] [id number] 09/30/2024 [id number] / / [id number] Dev Contrl Tiss Stratafix Spiral Mncryl Ud 3/0 Pls 60cm - [id number] Implanted:Qty : 1 on 05/11/2023 by Malcolm Mcdowell MD at [facility] Implant Right: Knee [employer] ENDO SURGERY DIV OF J AND J [id number] 01/29/2025 [id number] / / [id number] Cmt Bone Palacos R Hi/Visc 1x40 - [id number] Implanted:Qty : 2 on 05/11/2023 by Malcolm Mcdowell MD at [facility] Implant Right: Knee [employer] [id number] 10/31/2027 [id number] / / [id number] Base Tib/Kn Gen2 Nonpor Ti Sz3 Rt - [id number] Implanted:Qty : 1 on 05/11/2023 by Malcolm Mcdowell MD at [facility] Implant Right: Knee [employer] [id number] 12/22/2032 [id number] / / [id number] Comp Fem Legion Oxinium Cr Nrw Sz5n Rt - [id number] Implanted:Qty : 1 on 05/11/2023 by Malcolm Mcdowell MD at [facility] Implant Right: Knee [employer] [id number] 02/12/2033 [id number] / / [id number] Patella Resrf Gen2 7.5x32mm - [id number] Implanted:Qty : 1 on 05/11/2023 by Malcolm Mcdowell MD at [facility] Implant Right: Knee [employer] [id number] 02/22/2033 [id number] / / [id number] Insrt Art/Kn Legion Cr Hf Xlpe Sz3to4 10mm - [id number] Implanted:Qty : 1 on 05/11/2023 by Malcolm Mcdowell MD at [facility] Implant Right: Knee [employer] NEPHEW 02/07/2033 [id number] / / [id number] Totl Kn Colin Torres Nephew - [id number] Implanted:Qty : 1 on 05/11/2023 by Malcolm Mcdowell MD at [facility] Implant Right: Knee TORRES [employer] NEPHEW [employer] LSN2 / / Insurance [facility] Advance Directives * CPR (Attempt to Resuscitate) (Latest Code Status on File) Date Activated Date Inactivated Comments 05/11/2023 3:27 PM 05/11/2023 9:48 PM Question Answer Comments Code Status (Patient has no pulse and is not breathing): CPR (Attempt to Resuscitate) Medical Interventions (Patie nt has pulse or is breathing): Full Support Care Teams Chef German Relationship Specialty Start Date End Date Drew Campbell MD [address] [facility] [address] [place] [address] PCP - General Family Medicine 12/14/22
[2025-10-01 08:58] LABS: Hematocrit 42.0 % (37.0-47.0); Hemoglobin 13.7 g/dL (12.2-16.2); Immature Granulocytes % 0.3 %; Mean Corpuscular HGB Conc 32.6 g/dL (31.8-35.4); Mean Corpuscular Hemoglobin 29.5 pg (27.0-31.2); Mean Corpuscular Volume 90.3 fl (81-99); Nucleated Red Blood Cells % 0 %; Platelet Count 243 K/mm3 (142-424); Red Blood Count 4.65 M/mm3 (4.20-5.40); Red Cell Distribution Width-SD 43.0 fL; White Blood Count 6.3 K/mm3 (4.8-10.8)
[2025-10-01 09:54] LABS: Albumin Level 4.0 g/dl (3.5-5.0); Chloride 104 mmol/L (98-107); Potassium 4.0 mmoL/L (3.5-5.1); Sodium 142 mmol/L (136-145)
[2025-10-01 09:57] LABS: Alanine Aminotransferase 29 U/L (12-78); Albumin/Globulin Ratio 1.7 (1.1-1.8); Alkaline Phosphatase 62 U/L (38-126); Anion Gap 14.0 mEq/L (5-15); Aspartate Amino Transferase 29 U/L (14-36); Bilirubin,Total 0.6 mg/dl (0.2-1.3); Blood Urea Nitrogen 16 mg/dl (7-17); Calcium 8.9 mg/dl (8.4-10.2); Carbon Dioxide 28 mmol/L (22.0-30.0); Cholesterol 171 mg/dl (140-200); Creatinine,Serum 0.70 mg/dl (0.52-1.04); Estimated Glomerular Filt Rate 84 ml/min (>60); GFR (African American) 102 ML/MIN (>60); Globulin 2.4 g/dL (1.3-3.2); Glucose 88 mg/dl (74-100); HDL Cholesterol 49 mg/dl (40-60); Total Protein,Serum 6.4 g/dl (6.3-8.2); Triglycerides 58 mg/dl (30-150)
== END 2025-10-01 23:59 | disposition home or self-care (01) ==
LOC: LAB 08:30
PROVIDERS: PCP Internal Medicine; Visit Provider Internal Medicine
DX: E78.5 Hyperlipidemia, unspecified (principal); I10 Essential (primary) hypertension
CPT/HCPCS: 36415; 80053; 80061; 85025

== ENCOUNTER 2025-10-17 10:43 | Outpatient (CLI) | payer OTHER, SELFPAY ==
--- NOTE | 2025-10-17 11:00 | MM_ITS ---
PROCEDURE INFORMATION: Exam: MG Bilateral Screening 3D Mammography Exam date and time: 10/17/2025 10:46 AM Age: 65 years old Clinical indication: Screening examination TECHNIQUE: Imaging protocol: Bilateral Screening tomosynthesis and 2D mammography including computer-aided detection (CAD) when performed. COMPARISON: No relevant prior studies available. FINDINGS: MAMMOGRAPHY: Breast composition: There are scattered areas of fibroglandular density. Mass: Questionable 0.5 cm ovoid mass in the posterior right lateral breast only well seen on the craniocaudal projection Architectural distortion: None. Calcifications: No suspicious calcifications. Asymmetric density: None. Skin thickening: None. Axillary adenopathy: None. IMPRESSION: Patient to be recalled for a spot compression view of the right breast in the craniocaudal projection, a full 90 degree lateral view of the right breast, and right breast ultrasound for further evaluation of a questionable right breast mass. ASSESSMENT: BI-RADS Category 0: Incomplete- Need Additional Imaging Evaluation
--- OUTSIDE RECORDS SUMMARY | 2025-10-17 12:24 | XMS_ITS | Patient Health Record ---
[facility] Address [address] [place] [id number] Care Team Providers Care Software Development Analyst Name Role Phone Deondre Santiago Primary Care Provider [phone] Dre Campbell Unavailable [phone] Allergies No Known Allergies Reason For Referral [...] Vaccine Route Administration Date Status Comme nts DT, 7 YEARS OR OLDER IM Intramuscular 07/24/2005 Administe red Fluzone Quad (6months&older) IM Intramuscular 07/23/2020 Administered Hepatitis A (adult) Unknown 09/29/2018 Administered Hepatitis A (adult) Unknown 12/02/2018 Administered Hepatitis A (adult) IM Intramuscular 07/23/2020 Administer ed Tetanus Tdap-Adacel (over 7yrs) IM Intramuscular 11/02/2018 Administered Typhoid vaccine Unknown 09/29/2018 Administered xFluzone Intradermal (18-64yrs)-trivalent ID Intradermal 08/07/2013 Administered Problems Problem Type SNOMED Code ICD Code Onset Dates Problem Status W/U Status Risk Notes Problem Essential hypertension (10315255) Essential hypertension (I10) Active confirmed Problem Primary generalised osteoarthritis (491326122) Primary generalized (osteo)arthritis (M15.0) Active confirmed Problem Osteoarthritis of knee (340448265) Primary osteoarthritis of both knees (M17.0) Active confirmed Problem Osteoarthritis of knee (874016392) Primary osteoarthritis of right knee (M17.11) Active confirmed Problem Body mass index 40+ - morbidly obese (577049982) BMI 40.0-44.9, adult (Z68.41) Active confirmed Problem Skin sensation disturbance (89326145) Paresthesias in right hand (R20.2) Active confirmed Plan Of Treatment No Information Insurance Providers Payer Name Payer Address Payer Phone Subscriber Number Group Number Insured Name Patient Relationship to Insured Coverage Start Date Coverage End Date [facility] [address] [place] [phone] [id number] ARMANI YUN Self - patient is the insured Medications Administered Medication Instructions Date of Administration Dosage Notes Dexamethasone 05/20/2007 1.0 mL Dexamethasone 01/18/2009 1 mL Dexamethasone 06/25/2010 1.0 mL Dexamethasone 02/05/2014 1 mL Dexamethasone 09/21/2016 1 mL Medical (General) History Medical History History ICD Code HBP Surgical History Surgery Date(Month/Year) scope on the right knee-[facility] 04/2019
--- OUTSIDE RECORDS SUMMARY | 2025-10-17 12:24 | XMS_ITS | Clinical Summary ---
[facility] Address [address] [place] [address] Care Team Providers Care Liquor Bridge Operator Helper Name Role Phone Drew Campbell MD Primary [...] 11/02/2028 019 Medical Devices Implanted Type Area Bowling Ball Finisher Device Identifier Shelf Expiration Date Model / Serial / Lot Dev Contrl Tiss Stratafix Symm Pds Plus Matilda Ct-1 45cm - [id number] Implanted:Qty : 1 on 05/11/2023 by Malcolm Mcdowell MD at [facility] Implant Right: Knee [employer] J AND J [id number] 09/30/2024 [id number] / / [id number] Dev Contrl Tiss Stratafix Spiral Mncryl Ud 3/0 Pls 60cm - [id number] Implanted:Qty : 1 on 05/11/2023 by Malcolm Mcdowell MD at [facility] Implant Right: Knee [employer] ENDO SURGERY DIV OF J AND J [id number] 01/29/2025 [id number] / / [id number] Cmt Bone Palacos R Hi/Visc 1x40 - [id number] Implanted:Qty : 2 on 05/11/2023 by Malcolm Mcdowell MD at [facility] Implant Right: Knee [employer] [id number] 10/31/2027 [id number] / / [id number] Base Tib/Kn Gen2 Nonpor Ti Sz3 Rt - [id number] Implanted:Qty : 1 on 05/11/2023 by Malcolm Mcdowell MD at [facility] Implant Right: Knee [employer] [id number] 12/22/2032 [id number] / / [id number] Comp Fem Legion Oxinium Cr Nrw Sz5n Rt - [id number] Implanted:Qty : 1 on 05/11/2023 by Malcolm Mcdowell MD at [facility] Implant Right: Knee [employer] [id number] 02/12/2033 [id number] / / [id number] Patella Resrf Gen2 7.5x32mm - [id number] Implanted:Qty : 1 on 05/11/2023 by Malcolm Mcdowell MD at [facility] Implant Right: Knee [employer] [id number] 02/22/2033 [id number] / / [id number] Insrt Art/Kn Legion Cr Hf Xlpe Sz3to4 10mm - [id number] Implanted:Qty : 1 on 05/11/2023 by Malcolm Mcdowell MD at [facility] Implant Right: Knee [employer] NEPHEW 02/07/2033 [id number] / / [id number] Totl Kn Colin Torres Nephew - [id number] Implanted:Qty : 1 on 05/11/2023 by Malclom Mcdowell MD at [facility] Implant Right: Knee TORRES [employer] NEPHEW [employer] LSN2 / / Insurance [facility] Advance Directives * CPR (Attempt to Resuscitate) (Latest Code Status on File) Date Activated Date Inactivated Comments 05/11/2023 3:27 PM 05/11/2023 9:48 PM Question Answer Comments Code Status (Patient has no pulse and is not breathing): CPR (Attempt to Resuscitate) Medical Interventions (Patie nt has pulse or is breathing): Full Support Care Teams Liquor Bridge Operator Helper Relationship Specialty Start Date End Date Drew Campbell MD [address] [facility] [address] [place] [address] PCP - General Family Medicine 12/14/22
--- OUTSIDE RECORDS SUMMARY | 2025-10-17 12:24 | XMS_ITS | Data Portability ---
Author Organization MARLENE BOGDAN [facility] [place] [facility] Address [address] [place] [address] Care Team Providers Care International Controller Name Role Phone LORI WHARTON Primary Care Provider [phone] Assessment Encounter Date Assessment Date Assessment LastModified by Organization Details LastModified Time 06/07/2019 06/07/2019 Pt tolerated follow up visit well today. She required less time to complete TE in clinic with minimal to no rest breaks in between exercises. She continues to have mild tenderness to touch R knee medial joint line, but overall appears to be making functional progress. Plan for her to return for follow up visit in 1 week and update HEP. Not available 06/07/2019 17:17:34 06/19/2019 06/19/2019 Pt's since last visit which has interrupted her ability to participate and attend skilled PT for R knee meniscectomy. She has maintained gains for R knee AROM, strength and gait mechanics. Discussed exercises for her to continue to focus on as she takes care of her 's estate. She will be discharged from skilled PT at this time and updated HEP to reflect progressions. She has achieved all short term goals and superintendent terminal goals 1 2 3 4. STG: In 6 weeks, pt will: 1) Display independence and report compliance with HEP MET 2) Display right knee ROM: 0-120 deg MET 3) Display right LE MMT: Hip flex 5/5 Ext 4/5 AB 4/5 IR 4+/5 ER 4+/5 knee flex 5/5 ext 5/5 MET 4) Ambulate with normal mechanics on level surfaces MET 5)Negotiate stairs with step to gait pattern with use of HR and/or AD MET 6) Display appropriate Quad and VMO activation with functional activities MET 7) Display mild patellar hypomobility MET LTG: In 12 Weeks, pt will: 1) Display independence with HEP and self-management skills MET 2) Return to ADLs without modification MET 3) Return to Recreational activities with modification playing with dogs in field/hiking MET 4) Return to Occupational activities with modification for prolonged sitting MET 5) Display Right LE MMT: hip ext 4+/5 AB 4+/5 IR 5/5 ER 5/5 NOT MET 6) Ambulate independently over all surfaces for community based distances NOT MET 7) Negotiate stairs with reciprocal gait pattern NOT MET 8) Display normal quad activation and patellar mobility NOT MET Not available 06/19/2019 09:30:50 Plan of Treatment Reminders Order Date Submit Date Provider Last Modified By Organization Details Last Modified Time Details Appointments None record ed. Lab None record ed. Referral None record ed. Procedures None record ed. Surgeries None record ed. Imaging None record ed. Medication Orders None record ed. Patient TargetsNo targets recorded. Patient Instructions Encounter Date Encounter Id Patient Instructions Last Modified By Organization Details Last Modified Time 06/19/2019 [id number] doing well tehrapy hep no systemic issues revd surgery images f/u prn phester Not available 06/25/2019 13:30:43 08/12/2020 [id number] right knee. Patient stated that right knee is bothering her she is only able to walk [place] No mechanical issues ___ Exam: Right Knee: Meniscus injury: Palpation: medial joint line Yes lateral joint line Yes plica Yes lateral hamstring Yes Meniscus: Steve's Medial Positive ___ Plan: Right Knee steroid injection today - seemed to have helped left knee also problematic injection to that knee is also option phester Not available 09/01/2020 18:05:13 09/15/2022 [id number] Discussed conservative and surgical options with the patient in detail. Discussed the fact that though most people are better with surgery; some are no better and some are worse. I also discussed the inherent risks and complications such as: , DVT, infection, stiffness, loss of motion and or strength, as well as need for extensive postoperative care with physical therapy. Patient comfortable with plan and wishes to proceed with steroid injections We discussed arthroplasty and PAPPAS injection options FU 3 months phester Not available 10/14/2022 22:04:00 Reason for Referral None Reported. Results Created Date Observation Date Name Description Value Unit Range Abnormal Flag Note LastModifiedBy Organization Detail LastModifiedTime 09/15/20 22 09/15/2022 [facility]R, [facility] [address] [place] [address] Patiyulia t Name: ARMANI chacko : [phone] Patiyulia chacko 27 Orderi ng Provid er: ARCHANA CHAMBERS EXAM DATE: 2021 EXAM: XR DAIANA KNEES 1 OR 2 VIEWS HISTOR Y: Bilate ral knee pain. COMPAR SOLIS: None. FINDIN GS: There are severe osteoa rthrit ic change s. There is modera te to severe margin al osteop hytic spurri ng. There is near comple te loss of joint space in the medial femoro tibial compar tment. There is no eviden ce of fractu re. IMPRES JAZMYNE: 1. There are severe osteoa rthrit ic change s in both knees. Interp reted By: Sanjiv bullard MD Electr onical ly Signed By: Sanjiv bullard MD on 2021 10:25 AM [facility] [address], [place], [address], 09/15/2022 18:21:50 Result Notes Documentation Provider Name and Address Organization Details Recorded Time Xr, Knee, 1 Or 2 View : [facility] [address] [place] [address] Patient Name: ARMANI VALENCIA Patient : 1960 Patient Ordering Provider: ARCHANA CHAMBERS EXAM DATE: 09/15/2022 EXAM: XR DAIANA KNEES 1 OR 2 VIEWS HISTORY: Bilateral knee pain. COMPARISON: None. FINDINGS: There are severe osteoarthritic changes. There is moderate to severe marginal osteophytic spurring. There is near complete loss of joint space in the medial femorotibial compartment. There is no evidence of fracture. IMPRESSION: 1. There are severe osteoarthritic changes in both knees. Interpreted By: Raul Vázquez MD ANA CHAMBERS MD [address] [place] [phone] [place] [address] 09/15/2022 18:21:50 Problems No Known Problems Procedures Surgical History Date Name Laterality Status Provider Name and Address Organization Details Recorded Time 2 Injection - Joint/Bursa, Major completed ARCHANA CHAMBERS MD [address] [place] [address], [phone] [place] [address] 10/14/2022 22:02:02 0 Injection - Joint/Bursa, Major completed ARCHANA CHAMBERS MD [address] [place] [address], [phone] [place] [address] 08/12/2020 14:33:05 9 PT Therapeutic Exercise completed ESDRAS CAMPBELL, PT, DPT [address] [place] [address], [address], [facility] 06/19/2019 09:27:09 9 PT Therapeutic Exercise completed ESDRAS CAMPBELL, PT, DPT [address] [place], [place] [address], [place], [address] 06/07/2019 17:16:36 9 PT Therapeutic Exercise completed ESDRAS CAMPBELL, PT, DPT [address] [place], [address], [facility] 05/31/2019 12:49:19 9 PT Therapeutic Exercise completed ESDRAS CAMPBELL, PT, DPT [address] [place], [address], [facility] 05/17/2019 09:36:05 9 PT Therapeutic Exercise completed ESDRAS CAMPBELL, PT, DPT [address] [place], [address], [facility] 05/08/2019 09:54:56 9 PT Therapeutic Exercise completed ESDRAS CAMPBELL, PT, DPT [address] [place], [address], [facility] 05/02/2019 11:45:13 9 PT Evaluation - Moderate Complexity completed ESDRAS CAMPBELL, PT, DPT [address] [place], [address], [facility] 04/25/2019 13:46:25 9 PT Therapeutic Exercise completed ESDRAS CAMPBELL, PT, DPT [address] [place], [address], [facility] 04/25/2019 13:46:33 9 Suture/Staple removal completed Dre MENDEZ PA-C [address] [place], [address], [facility] 04/16/2019 14:18:02 9 Orthopedic Surgery completed Chris Mendoza [facility] 04/13/2019 14:26:38 9 Injection - Joint/Bursa, Major completed Malcolm Torres [facility] 01/23/2019 15:36:02 Imaging Results None recorded. Procedure Notes None recorded. Medical Equipment None Reported. Allergies No known drug allergies Medications Name Sig Start Date Stop Date Status Note LastModified by Organization Details LastModified Time tretinoin 0.1 % topical cream active Not Available Not Available Not Available doxycycline hyclate 100 mg capsule TAKE 1 CAPSULE BY MOUTH TWICE DAILY FOR 10 DAYS active Not Available Not Available No t Available nabumetone 750 mg tablet TAKE 1 TABLET BY MOUTH TWICE DAILY active Not Available Not Available No t Available azithromycin 250 mg tablet active Not Available Not Available Not Available ofloxacin 0.3 % eye drops active Not Available Not Available Not Available fluconazole 150 mg tablet active Not Available Not Available Not Available benazepril 20 mg-hydrochlo rothiazide 12.5 mg tablet active Not Available Not Available Not Available hydrocodone 10 mg-acetamino phen 325 mg tablet Take 1 tablet every 4-6 hours by oral route as needed. active Not Available Not Available N ot Available amoxicillin 875 mg tablet active Not Available Not Available Not Available prednisolone acetate 1 % eye drops,suspen jazmyne active Not Available Not Available Not Available hydrochlorot hiazide 12.5 mg capsule active Not Available Not Available N ot Available benazepril 20 mg tablet active Not Available Not Available Not Available hydrocortiso ne 2.5 % topical cream active Not Available Not Available Not Available etodolac 400 mg tablet active Not Available Not Available No t Available dexamethason e sodium phosphate 4 mg/mL injection solution use as directed for iontopheres is 2018 active Not Available Not Available Not Avai lable methylpredni solone 4 mg tablets in a dose pack FOLLOW PACKAGE DIRECTIONS active Not Available Not Available N ot Available cefdinir 300 mg capsule active Not Available Not Available N ot Available Vitals Date Recorded Body height Body mass index (BMI) Body weight Systolic And Diastolic Provider Name and Address Organization Details Last Updated DateTime 06/19/2019 157.48 cm 42.1 kg/m2 716894.25 g 138/89 mm[Hg] [facility] 06/19/2019 09:24:01 Date Recorded Body height Body mass index (BMI) Body weight Systolic And Diastolic Provider Name and Address Organization Details Last Updated DateTime 08/12/2020 157.48 cm 42.1 kg/m2 794219.25 g 131/83 mm[Hg] [facility] 08/12/2020 13:55:52 Date Recorded Body height Body mass index (BMI) Body weight Pain severity - 0-10 verbal numeric rating [Score] - Reported Provider Name and Address Organization Details Last Updated DateTime 09/15/2022 157.48 cm 41.2 kg/m2 184132.28 g 9 Lucio [facility] 09/15/2022 10:00:59 Social History Question Answer Notes LastModified by Organizat ion Details LastModified Time Tobacco Smoking Status Never [facility]oker [facility] 12/12/2018 11:50:27 Rate The Severity Of Your Symptoms: (0-10 With 0=none And 10=worst Possible) 8 rcrank Information not available 12/12/2018 What Was The Date Of Your Most Recent Tobacco Screening? 05/08/2019 Information n ot available 12/19/2019 Sex: Unknown Functional Status None recorded. Mental Status None recorded. Family History Nothing Reported. Medical History Condition Response Diabetes N Bleeding Disorder N Blood Thinners N Seizures/Epilepsy N Heart Conditions N Sleep Apnea N Blood Clot N Anesthesia Complications N Heart Attack (OR) N Cancer N Stroke N COPD N Asthma N Gynecological HistoryNo gynecological history recorded. Obstetrics History GPAL:G 0 P 0 0 0 0 Past Encounters Encounter ID Performer Location Encounter Start Date Encounter Closed Date Diagnosis/Indication Diagnosis SNOMED-CT Code Diagnosis ICD10 Code Diagnosis IMO Codes Diagnosis Note [id number] ARCHANA CHAMBERS MD [facility] [address] [place] [address] 12/12/2018 11:11:03 12/12/2018 12:49:29 Pain in right knee 1491404904 65636 M25.025 [id number] ARCHANA CHAMBERS MD [facility] [address] [place] [address] 12/22/2018 12:57:19 12/22/2018 14:04:47 Pain in right knee 8045780995 95193 M25.397 [id number] ARCHANA CHAMBERS MD [facility] [address] [place] [address] 01/23/2019 14:33:31 01/26/2019 08:57:37 Pain in right knee [id number] 58110 M25.781 [id number] ARCHANA CHAMBERS MD [facility] [address] [place] [address] 03/20/2019 10:54:38 03/20/2019 11:53:09 Pain in right knee 4301698217 57639 M25.561 Tear of me dial meniscus of knee 951919726 S83.241D 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 9153245224 50231 M67.51 [id number] ARCHANA CHAMBERS MD SURGERY SCHEDULE [address] [place] [address] 04/07/2019 13:44:59 04/07/2019 13:48:18 [id number] Dre MENDEZ PA-C [facility] [address] [place] [address] 04/13/2019 13:57:11 04/13/2019 14:59:20 Postoperative care 419900742 Z48.89 [id number] ESDRAS CAMPBELL, PT, DPT PHYSICAL THERAPY / HAND THERAPY [facility] [address] [place] [address] 04/25/2019 12:22:43 04/25/2019 14:39:26 Pain in right knee 4014285094 96552 M25.561 History of operative procedure on knee 603059200 Z98.890 Muscle weakness 19474044 M62.81 Tear of me dial meniscus of knee 707400871 S83.242D [id number] ESDRAS CAMPBELL, PT, DPT PHYSICAL THERAPY / HAND THERAPY [facility] [address] [place] [address] 05/02/2019 10:45:04 05/02/2019 13:01:36 Muscle weakness 79045446 M62.81 Tear of me dial meniscus of knee 022458858 S83.242D Pain in right knee 76002 68138 94279 M25.561 History of operative procedure on knee 630359124 Z98.344 [id number] Dre MENDEZ PA-C [facility] [address] [address] 05/08/2019 09:33:59 05/08/2019 10:10:35 Postoperative care 638125459 Z48.89 [id number] ESDRAS CAMPBELL, PT, DPT PHYSICAL THERAPY / HAND THERAPY [facility] [address] [place] [address] 05/08/2019 09:34:39 05/08/2019 13:17:10 Tear of medial meniscus of knee 515906765 S83.242D Muscle weakness 78047031 M62.81 Pain in right knee 74773 46797 50524 M25.561 History of operative procedure on knee 473233820 Z98.104 [id number] ESDRAS CAMPBELL, PT, DPT PHYSICAL THERAPY / HAND THERAPY [facility] [address] [place] [address] 05/17/2019 09:30:26 05/17/2019 13:42:54 Tear of medial meniscus of knee 426444978 S83.242D History of operative procedure on knee 425973874 Z98.890 Pain in right knee 02343 64732 39977 M25.561 Muscle weakness 90053870 M62.81 [id number] ESDRAS CAMPBELL, PT, DPT PHYSICAL THERAPY / HAND THERAPY [facility] [address] [place] [address] 05/31/2019 11:59:03 05/31/2019 13:01:45 Tear of medial meniscus of knee 810416060 S83.242D History of operative procedure on knee 758676009 Z98.890 Pain in right knee 12289 43327 21956 M25.561 Muscle weakness 69328788 M62.81 [id number] ESDRAS CAMPBELL, PT, DPT PHYSICAL THERAPY / HAND THERAPY [facility] [address] [place] [address] 06/07/2019 15:40:45 06/08/2019 07:43:19 Tear of medial meniscus of knee 641657696 S83.242D History of operative procedure on knee 451297727 Z98.890 Pain in right knee 87695 49747 19523 M25.561 Muscle weakness 42863035 M62.81 [id number] ARCHANA CHAMBERS MD [facility] [address] [place] [address] 06/19/2019 08:56:52 06/19/2019 10:06:17 Pain in right knee 0117294477 36647 M25.813 [id number] ESDRAS CAMPBELL, PT, DPT PHYSICAL THERAPY / HAND THERAPY [facility] [address] [place] [address] 06/19/2019 08:57:35 06/19/2019 09:31:20 Tear of medial meniscus of knee 952053561 S83.242D History of operative procedure on knee 524172778 Z98.890 Pain in right knee 96138 16880 44686 M25.561 Muscle weakness 98392136 M62.81 [id number] ARCHANA CHAMBERS MD [facility] [address] [place] [address] 08/12/2020 13:41:50 08/12/2020 15:10:48 Pain in right knee 7605111105 76762 M25.561 [id number] ARCHANA CHAMBERS MD [facility] [address] [place] [address] 09/15/2022 09:56:47 09/15/2022 11:20:18 Osteoarthritis of right knee joint 4007143085 89800 M17.11 Osteoarthr itis of left knee joint 7552211812 53772 M17.12 Health Concerns Section Related Observation LastModified by Organization Detai ls LastModified Time None Recorded Concern Status LastModified by Organization Details LastModified Time None Recorded Advance Directives Directive None Recorded Payers Insurance Date Sequence Insurance Name Policy Number Policy Cerda Covered Member ID Cerda Member ID Guarantor Name 10/15/2022 1 [facility] [id number] Armani Valencia [id number] Armani Valencia Notes Date Note Type Note Provider Name and Address Organization Details Recorded Time 06/07/2019 text/html ROS as noted in the HPI Pt reports no soreness or pain after last visit. She continues to have good and bad days with her R knee, but overall has noticed improvements. She has been compliant with HEP. She denies R knee pain today, but she did not sleep well last night (unrelated to R knee). ESDRAS CAMPBELL, PT, DPT [address] [place], [address], [facility] 06/07/2019 17:17:43 06/19/2019 text/html 06/19/19 2mo sp knee scope mm Patient comes in today for FU Right Knee. Patient states they are better than last visit. PAIN: Pain Rating: Current 1, Worst 6 SYMPTOMS: Locking no Catching no Buckling no Instability no Pain with pivot/twist no Grinding Popping/cracking no Swelling no Stiffness yes Burning Numbness/tingling X-RAY: Yes, No Disc [facility] - 11/25/18 MRI: Yes, LC 12/22/18 == 05-08-19 Patient comes in today for FU Right Knee. Patient states they are better than last visit. Patient reports of right anterior pain and occasional shooting pain on the right medial side. Patient reports of stiffness, has issues with full extending right knee. 04-07-19 Patient comes in today for HFU Right Knee. Patient states they are than last visit. Right knee - scope, medial meniscectomy. 03/20/19 Patient comes in today for FU Right Knee. Medial meniscus tear Patient states they are worse than last visit. PAIN: Pain Rating: Current 7, Worst 8 SYMPTOMS: Locking no Catching yes Buckling yes Instability no Pain with pivot/twist yes Grinding yes Popping/cracking yes Swelling yes Burning no Numbness/tingling no X-RAY: Yes, No Disc [facility] - 11/25/18 MRI: Yes, 12/22/18 Non-Operative Treatments PT: Yes Did not help ____x/wk for ___wks Injection: Yes Helped somewhat, helped for a week Date: 01/23/19 NSAIDS: Yes Did not help Medrol: No Medication: Yes Did not help DME: Yes Did not help Activity Modification: Yes Did not help 01/23/19 Patient states right knee was getting better but now getting worse since last visit. PT is not helping Never had a steroid injection = 12/22/18 LOAN Rt Knee - MRI Results tried steroid po 3 mo ago - limited relief limping trouble s w stairs and driving = 12/12/18 PCP: Vitaliy Wharton MD - [place], [place] SEEN FOR CONSULTATION AT THE REQUEST OF: Vitaliy Wharton MD WHAT: Right Knee pain WHERE: WHEN: 09/2018 HOW: No traumatic injury, possible stepped of curb wrong SYMPTOMS: Global pain when standing. Shooting pain down [place]ley when driving. Swelling X-RAY: LC 11/25/18 MRI: PT: NO NSAIDS: Ibuprophen, Tylenol INJECTION: NO right knee. Night time pain Issues with pivot / twist / getting in and out of Auto / Stairs Flexed Knee Gait Pain scale today 7 out [place] [address] [place] [address], [address], [facility] 06/25/2019 13:31:08 06/19/2019 text/html Pt reports her since last visit. She has been preoccupied with his arrangements and she has inherited a 3 acre working farm. ESDRAS CAMPBELL, PT, DPT [address] [place], [address], [facility] 06/19/2019 09:30:58 06/19/2019 text/html ROS as noted in the HPI ESDRAS CAMPBELL PT, DPT [address] [place], [address], [facility] 06/19/2019 09:30:58 08/12/2020 text/html 08/12/20 Patient comes in today for FU Right Knee scope 04/07/19. Patient states they are worse than last visit. PAIN: Pain Rating: Current 2, Worst 8 Patient stated that right knee is bothering her she [place] able [place] No mechanical issues SYMPTOMS: Locking Clicking/Popping Catching yes Buckling Instability Pain with pivot/twist yes Grinding Swelling Stiffness yes Burning no Numbness/tingling no X-RAY: Yes, LC MRI: Yes, LC PT: Duration: Injection: Date: NSAIDS: Medrol: Medication: DME: Activity Modification: No ===== 06/19/19 2mo sp knee scope mm Patient comes in today for FU Right Knee. Patient states they are better than last visit. PAIN: Pain Rating: Current 1, Worst 6 SYMPTOMS: Locking no Catching no Buckling no Instability no Pain with pivot/twist no Grinding Popping/cracking no Swelling no Stiffness yes Burning Numbness/tingling X-RAY: Yes, No Disc [facility] - 11/25/18 MRI: Yes, LC 12/22/18 == 05-08-19 Patient comes in today for FU Right Knee. Patient states they are better than last visit. Patient reports of right anterior pain and occasional shooting pain on the right medial side. Patient reports of stiffness, has issues with full extending right knee. 04-07-19 Patient comes in today for HFU Right Knee. Patient states they are than last visit. Right knee - scope, medial meniscectomy. 03/20/19 Patient comes in today for FU Right Knee. Medial meniscus tear Patient states they are worse than last visit. PAIN: Pain Rating: Current 7, Worst 8 SYMPTOMS: Locking no Catching yes Buckling yes Instability no Pain with pivot/twist yes Grinding yes Popping/cracking yes Swelling yes Burning no Numbness/tingling no X-RAY: Yes, No Disc [facility] - 11/25/18 MRI: Yes, LC 12/22/18 Non-Operative Treatments PT: Yes Did not help ____x/wk for ___wks Injection: Yes Helped somewhat, helped for a week Date: 01/23/19 NSAIDS: Yes Did not help Medrol: No Medication: Yes Did not help DME: Yes Did not help Activity Modification: Yes Did not help 01/23/19 Patient states right knee was getting better but now getting worse since last visit. PT is not helping Never had a steroid injection = 12/22/18 LOAN Rt Knee - MRI Results tried steroid po 3 mo ago - limited relief limping trouble s w stairs and driving = 12/12/18 PCP: Vitaliy Wharton MD - [place], [place] SEEN FOR CONSULTATION AT THE REQUEST OF: Vitaliy Wharton MD WHAT: Right Knee pain WHERE: WHEN: 09/2018 HOW: No traumatic injury, possible stepped of curb wrong SYMPTOMS: Global pain when standing. Shooting pain down [place] when driving. Swelling X-RAY: LC 11/25/18 MRI: PT: NO NSAIDS: Ibuprophen, Tylenol INJECTION: NO right knee. Night time pain Issues with pivot / twist / getting in and out of Auto / Stairs Flexed Knee Gait Pain scale today 7 out of ten ARCHANA CHAMBERS MD [facility] [place], [address], [facility] 09/01/2020 18:06:05 09/15/2022 text/html Patient comes in today for FU Bilateral Knee.Patient states they are worse than last visit.TROUBLE WITH STAIRS AND GETTING IN/OUT CAR PAIN:Pain Rating: Current 9, Worst 10 Patient comes in today for bilateral knee injections. X-RAY: Yes, Today I REVIEWED IN DETAIL WITH HER SEVERE BILATERAL KNEE OSTEOARTHRITIS MRI: , Non-Operative TreatmentsPT: ____x/wk for ___wksInjection: Yes Helped somewhat Date: 08/12/2020 right knee onlyNSAIDS: Yes Helped somewhatadvil PRNMedrol:Medication :DME:Activity Modification: Yes ARCHANA CHAMBERS MD [address] [place], [address], [facility] 10/14/2022 22:04:28 OBGyn Episode No OBEpisode recorded.
--- OUTSIDE RECORDS SUMMARY | 2025-10-17 12:24 | XMS_ITS | Clinical Summary ---
Author Organization [facility] Yahir JL Address [address] [place] [address] Phone Care Team Providers Care Sternman Name Role Phone Unavailable Primary Care Provider [...] Procedure Name Priority Date/Time Associated Diagnosis Comments PARKING ENFORCEMENT SPECIALIST CYTOLOGY REPORT Routine 10/30/2014 5 :15 AM EST from Last 3 Months or Most Recently Relevant to Health Maintenance Results * PARKING ENFORCEMENT SPECIALIST CYTOLOGY REPORT (10/30/2014 5:15 AM EST) Career Services Director Cytology Report PATIENT NAME:ARMANI YUN Career Services Director Cytology Report Accession Number Collected Date/Time Received Date/Time [id number] 10/30/14 05:15 EST 10/31/14 05:27 EST GY [...] confirmed before definitive therapy. Processed using the [employer] Service Station Operator automated cytology screening device (Cubiez). Optoelectronic Technician: [email or web address] 11/06/2014 Completed by: HILARY Tejada (Electronically signed by) 11/06/2014 [facility] 10/30/2014 5:15 AM EST us Latoya Dodson MD PATHOLOGY ORDERABLES Annette al Result [facility] [address] [place] [address] from Last 3 Months or Most Recently Relevant to Health Maintenance Insurance [address] [place] [facility] CHOICE PLUS [facility] CHOICE PLUS Member Subscriber Plan / Payer (Ef fective 2013-Present) Name:Armani Yun Relation to Subscriber:Self Name:Erik Armani Moss Payer ID:[id number] (NAIC) Type:Not on file Address: [address] [place] [id number] [facility] CHOICE PLUS
== END 2025-10-17 23:59 | disposition home or self-care (01) ==
LOC: RAD 10:43
PROVIDERS: PCP Internal Medicine; Visit Provider Internal Medicine
DX: Z12.31 Encounter for screening mammogram for malignant neoplasm of breast (principal); R92.8 Other abnormal and inconclusive findings on diagnostic imaging of breast; R92.323 Mammographic fibroglandular density, bilateral breasts
CPT/HCPCS: 77063; 77067